=== PATIENT | female | born 1940 | race Caucasian/White ===

== ENCOUNTER 2022-08-11 08:37 | Observation (INO) ==
--- NOTE | 2022-07-16 13:13 | PAT Medication Instructions ---
Medication Instructions Date of Service July 16, 2022 Home Medications Vitamin D3 1 tab PO QAM amlodipine 5 mg tablet 5 mg PO QAM aspirin 81 mg capsule 81 mg PO QAM buspirone 10 mg tablet 10 mg PO BID calcium carbonate 600 mg-vitamin D3 5 mcg (200 unit) tablet 1 tab PO QAM carvedilol 3.125 mg tablet 3.125 mg PO BID cetirizine 10 mg tablet (Zyrtec) 10 mg PO QAM levothyroxine 50 mcg tablet 50 mcg PO QAM lisinopril 20 mg tablet 20 mg PO BID meloxicam 7.5 mg tablet 7.5 mg PO BID oxycodone myristate 9 mg capsule sprinkle extended release 12 hr(DON'T CRUSH) (Xtampza ER) 9 mg PO BID oxycodone-acetaminophen 7.5 mg-325 mg tablet 1 tab PO BID PRN pregabalin 150 mg capsule 150 mg PO BID ASK your surgeon for instructions meloxicam 7.5 mg tablet 7.5 mg PO BID DO NOT take the morning of surgery Vitamin D3 1 tab PO QAM calcium carbonate 600 mg-vitamin D3 5 mcg (200 unit) tablet 1 tab PO QAM cetirizine 10 mg tablet (Zyrtec) 10 mg PO QAM lisinopril 20 mg tablet 20 mg PO BID oxycodone myristate 9 mg capsule sprinkle extended release 12 hr(DON'T CRUSH) (Xtampza ER) 9 mg PO BID Take morning of surgery With a small sip of water, OTHERWISE NOTHING TO EAT OR DRINK AFTER MIDNIGHT: amlodipine 5 mg tablet 5 mg PO QAM aspirin 81 mg capsule 81 mg PO QAM (unless directed otherwise by surgeon) buspirone 10 mg tablet 10 mg PO BID carvedilol 3.125 mg tablet 3.125 mg PO BID levothyroxine 50 mcg tablet 50 mcg PO QAM oxycodone-acetaminophen 7.5 mg-325 mg tablet 1 tab PO BID PRN(if needed) pregabalin 150 mg capsule 150 mg PO BID Take evening before surgery buspirone 10 mg tablet 10 mg PO BID carvedilol 3.125 mg tablet 3.125 mg PO BID lisinopril 20 mg tablet 20 mg PO BID oxycodone myristate 9 mg capsule sprinkle extended release 12 hr(DON'T CRUSH) (Xtampza ER) 9 mg PO BID oxycodone-acetaminophen 7.5 mg-325 mg tablet 1 tab PO BID PRN(if needed) pregabalin 150 mg capsule 150 mg PO BID Other Notes If you have any questions please call us at [phone] or [phone] or [phone] or [phone]
--- NOTE | 2022-07-21 11:21 | Anesthesiology Consultation ---
Date of Service July 21, 2022 Assessment & Plan (1) Encounter for pre-operative examination: - will attempt to obtain most recent cardiology note. - thiopental allergy. - non-healing wound/sore: case discussed in detail with Dr. Morse who advised PCP clearance prior to surgery. Neutropenia also noted. Surgeon's office made aware, patient made aware would need PCP clearance at appt given non-healing w ound/sore. - COVID screening: Per brine tank operator on 07/16/2022: Travel screen negative, no known COVID-19 positive contacts or current COVID-19 related symptoms in past 2 weeks. To surgeon's discretion if preop COVID testing is needed. Chart Review Chart Review: Pending: Refer to Additional Notes / Consult section and Patient seen in Pre Admission Testing Teaching & Discussion Pre-Anesthesia Teaching/Discussion Notes: Instructed NPO after midnight before surgery, except medications with 15 cc of water. Medication instructions provided according to the PAT guidelines. History Surgery Operation Date: 08/11/22 07:30 Proposed Procedures p Left Reversed Total Shoulder Arthroplasty - Grant Lima MD Height/Weight Height: 5 ft 7 in Weight: 71.8 kg Allergies Allergy/AdvReac Type Severity Reaction Status Date / Time morphine AdvReac Gastrointestinal Verified 07/16/22 10:51 Upset [id number] Reductase AdvReac Muscle Pain Verified 07/16/22 10:51 Inhibitor thiopental [From Pentothal] AdvReac "I didn't Verified 07/16/22 11:19 wake up for 3 days" Medications Home Medications Medication Instructions Recorded Confirmed Last Taken Vitamin D3 1 tab PO QAM 07/16/22 07/16/22 Unknown amlodipine 5 mg tablet 5 mg PO QAM 07/16/22 07/16/22 Unknown aspirin 81 mg capsule 81 mg PO QAM 07/16/22 07/16/22 Unknown buspirone 10 mg tablet 10 mg PO BID 07/16/22 07/16/22 Unknown calcium carbonate 600 mg-vitamin 1 tab PO QAM 07/16/22 07/16/22 Unknown D3 5 mcg (200 unit) tablet carvedilol 3.125 mg tablet 3.125 mg PO BID 07/16/22 07/16/22 Unknown cetirizine 10 mg tablet (Zyrtec) 10 mg PO QAM 07/16/22 07/16/22 Unknown levothyroxine 50 mcg tablet 50 mcg PO QAM 07/16/22 07/16/22 Unknown lisinopril 20 mg tablet 20 mg PO BID 07/16/22 07/16/22 Unknown meloxicam 7.5 mg tablet 7.5 mg PO BID 07/16/22 07/16/22 Unknown oxycodone myristate 9 mg capsule 9 mg PO BID 07/16/22 07/16/22 Unknown sprinkle extended release 12 hr(DON'T CRUSH) (Xtampza ER) oxycodone-acetaminophen 7.5 mg-325 1 tab PO BID PRN Pain 07/16/22 07/16/22 Unknown mg tablet pregabalin 150 mg capsule 150 mg PO BID 07/16/22 07/16/22 Unknown diclofenac sodium 50 mg 50 mg PO DAILY 07/21/22 07/21/22 Unknown tablet,delayed release hyoscyamine sulfate 0.125 mg 0.125 mg PO BID PRN Abdominal Pain 07/21/22 07/21/22 Unknown tablet (Levsin) melatonin 10 mg tablet 10 mg PO HS PRN Insomnia 07/21/22 07/21/22 Unknown phenolphthalein-docusate sodium 65 tab PO DAILY 07/21/22 Unknown mg-100 mg tablet Additional Notes: Pt was instructed do NOT take levsin or laxatives/stool softeners day of surgery. She was advised to ask surgeon's office for diclofenac instructions and can continue prn melatonin. These instructions were also written on provided medication instructions. Patient verbalized full understanding and agreement, denied questions, concerns or additional medications. Past Medical History Medical History CAD (coronary artery disease) s/p 1 stent, follows with Dr. Lunsford Chronic back pain Fibromyalgia History of anesthesia reaction see allergy list History of migraine History of thrombocytopenia HLD (hyperlipidemia) HTN (hypertension) controlled, stable per pt Hyponatremia hx, pt states was d/t excessive water intake, now stable Hypothyroidism IBS (irritable bowel syndrome) Non-healing wound posterior vaginal area per pt, follows with PCP Osteoporosis PONV (postoperative nausea and vomiting) denies needing scop patch Slow to wake up after anesthesia denies needing re-intubation TMJ (temporomandibular joint disorder) clicking, denies locking Urinary incontinence Patient denies h/o stroke, seizures, heart attack, heart failure, DM, blood clots or blood transfusions. Exercise / Class Metabolic Activity II 4-5 Yardwork/Stairs/Walk up hill (denies chest discomfort or shortness of breath with 1 FOS) Past Family History Family History Other No family history of adverse response to anesthesia Past Surgical History Surgical History H/O heart artery stent x 1 stent History of bladder surgery x 3 History of cardiac catheterization > 10 years ago. 1 stent. History of cholecystectomy History of colonoscopy History of esophagogastroduodenoscopy (EGD) History of hysterectomy History of tonsillectomy Status post trachelectomy Past Anesthesia History No Family Hx of Anesthesia Complications and Other (slow to wake, denies needing re-intubation) History of PONV No Hx of Motion Sickness and History of PONV (denies needing scop patch) Social History Smoking Status: Never smoker Do You Dip or Chew Tobacco: No Hx Alcohol Use: No Hx Substance Use: No substance use type: does not use Review of Systems Snoring, denies witnessed apneas. Patient denies chest pain, shortness of breath, dyspnea on exertion, reflux, fever, chills, cough, wheezing, or palpitations. Physical Exam Vital Signs Vitals BP 157/88 P 72 TEMP 98.7 SP02 94% on RA RESP 17 Physical Full cervical extension range of motion without pain TMD 3.5 finger breadths Mallampati Score 2 Dentition: full upper denture; denies chipped or loose teeth, implants or bridges Lungs: normal respiratory effort. Clear throughout to auscultation, no adventitious breath sounds Cardiac: regular rate and rhythm, no murmurs noted Carotid arteries: negative bruit bilat Lab Results Anesthesia Preop Results Results Anesthesia Widget: WBC 3.44 K/ul (4.8-10.8) L 07/21/22 Hgb 15.3 g/dl (12.0-16.0) 07/21/22 Hct 45.1 % (37.0-47.0) 07/21/22 Plt 177 K/uL (130-400) 07/21/22 Na 140 mmol/L (136-145) 07/21/22 K 4.1 mmol/L (3.5-5.1) 07/21/22 Cl 104 mmol/L (98-107) 07/21/22 CO2 28 mmol/L (21-32) 07/21/22 BUN 20 mg/dl (6-23) 07/21/22 Creat 1.01 mg/dl (0.6-1.2) 07/21/22 Glucose Level 104 mg/dl (70-99(Fasting)) H 07/21/22 PT 11.0 Seconds (9.0-12.0) 07/21/22 PTT 27.2 Seconds (21.0-31.0) 07/21/22 INR 1.0 (0.9-1.1) 07/21/22 Blood Type O Positive 07/21/22 Antibody Screen NEGATIVE 07/21/22 Testing Laboratory Results 06/17/2022 UA: yellow, clear, negative Electrocardiogram Date: 07/21/22 NSR, rate [address] abnormality Chest X-Ray Date: 07/21/22 No lines and tubes are seen. Calcified aortic knob is seen. The lungs are clear. No evidence of pleural effusion or pneumothorax. IMPRESSION: No acute chest disease. COVID-19 Risk Screen Screening Information COVID-19 Screen Date: 07/21/22 Exposure 21 Days Family/Household +COVID Last 21 Days: No Exposure 10 Days Any COVID Exposure Last 10 Days: No Symptoms Last 10 Days Experienced COVID Sx Last 10 Days: No + COVID 0-90 Days COVID + in Last 0-90 Days: No
[~2022-08-11 08:37] MED LIST: ACETAMINOPHEN 500 MG TAB PO SCH; BUPIVACAINE 0.5 % 5 MG/1 ML PF 10ML VIAL ONE; CeleBREX 200 MG CAP PO SCH; LR 15ML/HR IV SCH; ceFAZolin 2000MG 2,000 MG/15 ML SYR IV SCH
[2022-08-11] MEDS ORDERED: MIDAZOLAM HCL 1 MG/ML 2ML VIAL ONE (11:10)
--- NOTE | 2022-08-11 11:21 | History & Physical Report ---
Date of Service August 11, 2022 Assessment & Plan (1) Rotator cuff tear arthropathy of left shoulder: Plan: I have recommended a left reverse total shoulder replacement. I explained the risk benefits and alternatives to her and she has consented to proceed. Plan is admission with discharge to a subacute nursing facility. History of Present Illness Chief Complaint: Left shoulder pain Primary Care Provider: KATELYNN PCP Rica is an 82-year-old woman with left shoulder pain and left shoulder rotator cuff tear arthropathy. After the failure of conservative treatment I recommended proceeding with a left reverse total shoulder replacement. Allergies Allergy/AdvReac Type Severity Reaction Status Date / Time morphine AdvReac Gastrointestinal Verified 08/11/22 08:59 Upset [id number] Reductase AdvReac Muscle Pain Verified 08/11/22 08:59 Inhibitor thiopental [From Pentothal] AdvReac "I didn't Verified 08/11/22 08:59 wake up for 3 days" Home Medications Medication Instructions Recorded Confirmed Type Vitamin D3 1 tab PO QAM 07/16/22 08/11/22 History amlodipine 5 mg tablet 5 mg PO QAM 07/16/22 08/11/22 History aspirin 81 mg capsule 81 mg PO QAM 07/16/22 08/11/22 History buspirone 10 mg tablet 10 mg PO BID 07/16/22 08/11/22 History calcium carbonate 600 mg-vitamin 1 tab PO QAM 07/16/22 08/11/22 History D3 5 mcg (200 unit) tablet carvedilol 3.125 mg tablet 3.125 mg PO BID 07/16/22 08/11/22 History cetirizine 10 mg tablet (Zyrtec) 10 mg PO QAM 07/16/22 08/11/22 History levothyroxine 50 mcg tablet 50 mcg PO QAM 07/16/22 08/11/22 History lisinopril 20 mg tablet 20 mg PO BID 07/16/22 08/11/22 History meloxicam 7.5 mg tablet 7.5 mg PO BID 07/16/22 08/11/22 History oxycodone myristate 9 mg capsule 9 mg PO BID 07/16/22 08/11/22 History sprinkle extended release 12 hr(DON'T CRUSH) (Xtampza ER) oxycodone-acetaminophen 7.5 mg-325 1 tab PO BID PRN Pain 07/16/22 08/11/22 History mg tablet pregabalin 150 mg capsule 150 mg PO BID 07/16/22 08/11/22 History diclofenac sodium 50 mg 50 mg PO DAILY 07/21/22 08/11/22 History tablet,delayed release hyoscyamine sulfate 0.125 mg 0.125 mg PO BID PRN Abdominal Pain 07/21/22 08/11/22 History tablet (Levsin) melatonin 10 mg tablet 10 mg PO HS PRN Insomnia 07/21/22 08/11/22 History phenolphthalein-docusate sodium 65 tab PO DAILY 07/21/22 History mg-100 mg tablet Past Med/Surg History Medical History CAD (coronary artery disease) s/p 1 stent, follows with Dr. Lunsford Chronic back pain Fibromyalgia History of anesthesia reaction see allergy list History of migraine History of thrombocytopenia HLD (hyperlipidemia) HTN (hypertension) controlled, stable per pt Hyponatremia hx, pt states was d/t excessive water intake, now stable Hypothyroidism IBS (irritable bowel syndrome) Non-healing wound posterior vaginal area per pt, follows with PCP Osteoporosis PONV (postoperative nausea and vomiting) denies needing scop patch Slow to wake up after anesthesia denies needing re-intubation TMJ (temporomandibular joint disorder) clicking, denies locking Urinary incontinence Surgical History H/O heart artery stent x 1 stent History of bladder surgery x 3 History of cardiac catheterization > 10 years ago. 1 stent. History of cholecystectomy History of colonoscopy History of esophagogastroduodenoscopy (EGD) History of hysterectomy History of tonsillectomy Status post trachelectomy Family History Other No family history of adverse response to anesthesia Social History Smoking Status: Never smoker Second Hand Exposure: No; Do You Dip or Chew Tobacco: No; Hx Alcohol Use: No Hx Substance Use: No Preferred Language: Korean Communication Ability: Effective Retail Consultant Required: No Beliefs That Will Affect Care: None Current Living Situation: Spouse Feels Safe at Home: Yes Safety Concerns: Feels Safe At This Time Assistive Devices: Denture - Upper and Glasses Physical Exam Constitutional: Well-developed, well-nourished, no acute distress Eyes: PERRL, conjunctivae normal, anicteric sclerae ENMT: external ear and nose normal, oropharynx normal Neck: Supple with no masses Respiratory: Clear to auscultation Cardiovascular: Regular rate and rhythm Musculoskeletal: Left shoulder decreased range of motion, crepitus, diffuse pain Results & Data Results & Data Vital Signs (Past 12 Hours) Vital Signs Temp Pulse Resp BP Pulse Ox O2 Del Method 08/11/22 09:04 36.7 C 74 21 147/88 H 95 Room Air
[2022-08-11] MEDS ORDERED: ePHEDrine sulfate 50 MG/ML AMP IV PRN (11:22)
[2022-08-11] MEDS ORDERED: ATROPINE SULFATE 0.1 MG/ML 10ML SYR IV PRN (11:22)
[2022-08-11] MEDS ORDERED: ONDANSETRON INJ 2 MG/ML 2 ML VIAL IV PRN ×2 (11:22→13:43)
[2022-08-11] MEDS ORDERED: fentaNYL citrate PF 100 MCG/2 ML VIAL IV PRN (11:22)
[2022-08-11] MEDS ORDERED: LR 15ML/HR IV SCH (11:30)
[2022-08-11] MEDS ORDERED: fentaNYL citrate PF 100 MCG/2 ML VIAL ONE (11:45)
[2022-08-11] MEDS ORDERED: PROPOFOL IV EMULSION 10 MG/ML 20 ML VIAL IV ONE (12:44)
[2022-08-11] MEDS ORDERED: LIDOCAINE 2% MPF LOCAL 5 ML VIAL ONE (12:44)
[2022-08-11] MEDS ORDERED: PHENYLEPHRINE 100MCG/ML 5ML SYR ONE (12:44)
[2022-08-11] MEDS ORDERED: ePHEDrine sulfate 50 MG/ML SYR ONE (12:44)
[2022-08-11] MEDS ORDERED: ONDANSETRON INJ 2 MG/ML 2 ML VIAL ONE (12:59)
[2022-08-11] MEDS ORDERED: DEXAMETHASONE SOD INJ 4 MG/ML VIAL ONE (12:59)
[2022-08-11] MEDS ORDERED: GLYCOPYRROLATE 0.2 MG/ML VIAL ONE (13:19)
--- NOTE | 2022-08-11 13:38 | Post Operative Brief Note ---
Immediate Post Op Note v1 Date of Surgery August 11, 2022 Pre & Post Diagnosis Operation Date: 08/11/22 11:20 Pre-Op Diagnosis: Left Shoulder Osteoarthritis Post-Op Diagnosis: Left Shoulder Osteoarthritis I identified the patient and participated in the time-out.: Yes Procedure Operation Date: 08/11/22 11:20 Actual Procedures p Left Reversed Total Shoulder Arthroplasty(Left) - Grant Lima MD Surgeon Grant Lima MD Artisan Plasterer Gilda Mccullough PA-C Estimated Blood Loss 30 Findings Consistent with Post-Op Diagnosis Left shoulder rotator cuff tear arthropathy Anesthesia Type General Regional Complications No complications
[2022-08-11] MEDS ORDERED: MELATONIN 3 MG TAB PO PRN (13:40)
[2022-08-11] MEDS ORDERED: HYOSCYAMINE SULFATE 0.125 MG TAB PO PRN (13:40)
[2022-08-11] MEDS ORDERED: oxyCODONE/APAP 7.5/325MG TAB PO PRN (13:40)
--- NOTE | 2022-08-11 13:40 | Operative Report ---
Post Operative Report Pre & Post Diagnosis Operation Date: 08/11/22 11:20 Pre-Op Diagnosis: Left Shoulder Osteoarthritis Post-Op Diagnosis: Left Shoulder Osteoarthritis I identified the patient and participated in the time-out.: Yes Procedure Operation Date: 08/11/22 11:20 Actual Procedures p Left Reversed Total Shoulder Arthroplasty(Left) - Grant Lima MD Surgeon Grant Lima MD Honey Blender Gilda Mccullough PA-C Estimated Blood Loss 30 Findings Consistent with Post-Op Diagnosis Osteoarthritis with glenohumeral cartilage loss, osteophyte formation, cephalization of the humeral head and deficient rotator cuff Specimens Proximal humerus bone and cartilage Drains No drains Complications No complications Indications Rica is a 82-year-old woman with left shoulder rotator cuff tear arthropathy. After the failure of conservative treatment I recommended proceeding with a left reverse total shoulder replacement. I explained the risk benefits and alternatives to her and she consented to proceed. Description of Procedure Implants: Arthrex reverse total shoulder replacement. Humeral stem 10 short with 36 x +2 mm offset cup. 36 mm x +6 mm polyethylene. 24 mm x +4 mm baseplate. 130 mm central screw to peripheral locking screws. 36 mm x +4 mm glenosphere. Procedure: The patient was taken to the operating room. After verifying their identity and the surgical site they were placed in the beachchair position. All extremities were well-padded. The operative shoulder was sterilely prepped and draped in the usual fashion. A 4 inch incision was made anteriorly just lateral to the coracoid process and carried towards the axillary folds. The deltopectoral interval was identified and the cephalic vein and deltoid muscle were retracted laterally. A deep self-retaining retractor was placed. The capsule was exposed. The subscapularis was elevated off of the proximal humerus and tagged for later repair. The humeral head was exposed and recut at the anatomic neck. The humerus was reamed sequentially until appropriate cortical contact was identified. The trial component was placed in 30 degrees of retroversion. Retractors were placed to expose the glenoid. The remaining labral tissue including the biceps anchor was removed. The central pin was placed and the glenoid was reamed. The baseplate was impacted into place with 1 central and 2 peripheral locking screws. The glenosphere was impacted into place into the correct orientation and securely tested with a large clamp. Polyethylene components were trialed until an appropriately sized trial was identified that had full range of motion, good stability, good deltoid tension, and no signs of impingement. The trial humerus components were removed and the final components assembled and impacted into place. 30 degrees of retroversion was utilized. After reduction once again there was good range of motion, good stability, appropriate deltoid tension, and no signs of impingement. The joint was thoroughly irrigated. The subscapularis was repaired to the proximal humerus. The rotator interval was closed distally if there was any supraspinatus tendon left. The remaining incision was closed with 0 Vicryl 2-0 Vicryl and kulwinder. A sterile Silverlon dressing was applied. The patient was placed in a shoulder immobilizer. The patient tolerated the procedure well and there were no intraoperative complications. Gilda Mccullough PA-C assisted in all aspects of the procedure including patient positioning, prepping and draping, manipulation of surgical instruments and retractors, wound closure, dressing placement, and compression wrap placement. I attest to the content of the Intraoperative Record and any orders documented therein. Any exceptions are noted below.
[2022-08-11] MEDS ORDERED: bisacodyL 10 MG SUPP PR PRN (13:43)
[2022-08-11] MEDS ORDERED: NALOXONE HCL 0.4 MG/1 ML VIAL/CARP IV PRN (13:43)
[2022-08-11] MEDS ORDERED: HYDROmorphone INJ 1 MG/ML SYRINGE IV PRN (13:43)
[2022-08-11] MEDS ORDERED: MAGNESIUM HYDROXIDE SUSP 30 ML UDC PO PRN (13:43)
--- NOTE | 2022-08-11 14:18 | Anesthesiology Progress Note ---
Date of Service August 11, 2022 Anesthesia Post Procedure Vital Signs Vital Signs: Temp Pulse Pulse Resp BP Pulse Ox O2 Del Method 08/11/22 14:10 85 24 150/76 H 97 Room Air 08/11/22 14:00 87 20 144/74 H 100 Oxymask 08/11/22 13:51 96.8 F L 95 H 15 148/83 H 96 Oxymask 08/11/22 09:04 98.1 F 74 21 147/88 H 95 Room Air O2 Flow Rate 08/11/22 14:10 08/11/22 14:00 10 08/11/22 13:51 10 08/11/22 09:04 Pain Intensity Left Shoulder: Pain Intensity: 4 Transfer of Care Handoff Completed per policy Notes Mental Status: alert / awake / arousable and participated in evaluation Patient Amnestic to Procedure: Yes Nausea / Vomiting: adequately controlled Pain: adequately controlled Airway Patency, RR, SpO2: stable & adequate BP & HR: stable & adequate Hydration State: stable & adequate Anesthetic Complications: no major complications apparent and Pt Satisfied with anesthetic care
[2022-08-11] MEDS: SODIUM CHLORIDE 0.9% 1000ML 1,000 ML IV SCH (14:59)
--- NOTE | 2022-08-11 15:36 | Hospitalist Consultation ---
Date of Consultation August 11, 2022 Assessment & Plan (1) Rotator cuff tear arthropathy of left shoulder: Left total shoulder arthroplasty s/p Left Reversed Total Shoulder Arthroplasty 08/12/2019 Doing well postoperatively, edge stainer machine strength and sensation is intact. Some intermittent qualitative numbness. Mild swelling at surgical site Continue current pain control, patient does not have her Xtampza ER available this has been converted to Oxy Contin 10 mg twice daily Continue aspirin twice daily 81 mg for DVT prophylaxis PPI stress prophylaxis added while on aspirin twice daily, patient is also with a history of NSAID use Coronary artery disease with history of PCI and single stent placement 2003 Continue carvedilol as noted Hold meloxicam Continue aspirin, temporarily increased to twice daily from daily for DVT prophylaxis. Preop EKG: Normal sinus rhythm, nonspecific ST changes, no ST elevation/depressions, QTc 432 Follows with [facility]. She has limited mobility due to her fibromyalgia and joint pain; but had not had anginal symptoms leading up to evaluation No chest pain, chest pressure, dyspnea, or anginal symptoms postoperatively Hypertension Continue carvedilol twice daily, do not hold unless hypotensive Continue amlodipine May continue lisinopril 20 mg twice daily Hypothyroidism Continue Synthroid 50 mcg daily History hyponatremia Due to excessive water intake, no problems since dietary change. Sodium is normal preop. No acute management for this required. Fibromyalgia Continue home Percocet dosing, pregabalin 150 3 times daily. Xtampsa converted to OxyContin, may resume Xtampsa on d/c Osteoporosis Continue calcium plus vitamin D DVT prophylaxis: Per primary team, currently on aspirin 81 mg twice daily which is adequate CODE STATUS: Full code Diet: Heart healthy (2) CAD (coronary artery disease): (3) HLD (hyperlipidemia): (4) Hyponatremia: (5) Hypothyroidism: (6) HTN (hypertension): History of Present Illness Attending Physician: Grant Lima MD History of Present Illness Rica is an 82-year-old female with a past medical history of SIADH, anxiety, hyperlipidemia, Sjogren's, hypothyroidism, GERD, fibromyalgia, hypertension who presented for scheduled left reverse total shoulder arthroplasty 08/11/22. We are consulted for medical management of comorbidities. Surgical intervention was uncomplicated with estimated 30 cc of blood loss. Rica is seen at the bedside, she reports she feels well postoperatively. She reports she has used NSAIDs in the past, denies history of ulcers/bleeding or kidney dysfunction. She is not having any chest pain, chest pressure, lightheadedness, dizziness or grogginess. She has a history of PCI with a single stent for which she is on aspirin and some cardiac medications, denies recent chest pain/angina but is somewhat limited due to her chronic joint pain. She has not had recent shortness of breath when laying flat or change in exertional dyspnea, reports that at baseline she has some mild shortness of breath with ambulation but this has not changed or increased in the last several months. she reports she has had some thumb and first digit numbness/tingling which has come back after her sensation was normal postoperatively. She reports she has had some paresthesias intermittently, thinks this feels a little bit different from her prior paresthesias. She reports her shoulder pain overall is about a 7/10. She is a little chilly and would like another blanket, otherwise no questions or concerns at bedside. No nausea/vomiting/abdominal pain/stomach upset postoperatively Medical History: Reviewed Medications: Reviewed Surgical History: Reviewed Family history: Reviewed Allergies: Reviewed Social History: Reviewed Code Status: Full code Allergies Allergy/AdvReac Type Severity Reaction Status Date / Time acetaminophen AdvReac Intermediate Increased Verified 08/11/22 11:28 Liver Enzymes per [place] morphine AdvReac Gastrointestinal Verified 08/11/22 08:59 Upset Slytcbl-UEY-CbN Reductase AdvReac Muscle Pain Verified 08/11/22 08:59 Inhibitor thiopental [From Pentothal] AdvReac "I didn't Verified 08/11/22 08:59 wake up for 3 days" Home Medications Medication Instructions Recorded Confirmed Type Vitamin D3 1 tab PO QAM 07/16/22 08/11/22 History amlodipine 5 mg tablet 5 mg PO QAM 07/16/22 08/11/22 History aspirin 81 mg capsule 81 mg PO QAM 07/16/22 08/11/22 History buspirone 10 mg tablet 10 mg PO BID 07/16/22 08/11/22 History calcium carbonate 600 mg-vitamin 1 tab PO QAM 07/16/22 08/11/22 History D3 5 mcg (200 unit) tablet carvedilol 3.125 mg tablet 3.125 mg PO BID 07/16/22 08/11/22 History cetirizine 10 mg tablet (Zyrtec) 10 mg PO QAM 07/16/22 08/11/22 History levothyroxine 50 mcg tablet 50 mcg PO QAM 07/16/22 08/11/22 History lisinopril 20 mg tablet 20 mg PO BID 07/16/22 08/11/22 History meloxicam 7.5 mg tablet 7.5 mg PO BID 07/16/22 08/11/22 History oxycodone myristate 9 mg capsule 9 mg PO BID 07/16/22 08/11/22 History sprinkle extended release 12 hr(DON'T CRUSH) (Xtampza ER) oxycodone-acetaminophen 7.5 mg-325 1 tab PO BID PRN Pain 07/16/22 08/11/22 History mg tablet pregabalin 150 mg capsule 150 mg PO BID 07/16/22 08/11/22 History diclofenac sodium 50 mg 50 mg PO DAILY 07/21/22 08/11/22 History tablet,delayed release hyoscyamine sulfate 0.125 mg 0.125 mg PO BID PRN Abdominal Pain 07/21/22 08/11/22 History tablet (Levsin) melatonin 10 mg tablet 10 mg PO HS PRN Insomnia 07/21/22 08/11/22 History phenolphthalein-docusate sodium 65 tab PO DAILY 07/21/22 History mg-100 mg tablet Patient History Medical History (Updated 08/11/22 @ 16:36 by Marv Torres MD) CAD (coronary artery disease) s/p 1 stent, follows with Dr. Lunsford Chronic back pain Fibromyalgia History of anesthesia reaction see allergy list History of migraine History of thrombocytopenia HLD (hyperlipidemia) HTN (hypertension) controlled, stable per pt Hyponatremia hx, pt states was d/t excessive water intake, now stable Hypothyroidism IBS (irritable bowel syndrome) Non-healing wound posterior vaginal area per pt, follows with PCP Osteoporosis PONV (postoperative nausea and vomiting) denies needing scop patch Slow to wake up after anesthesia denies needing re-intubation TMJ (temporomandibular joint disorder) clicking, denies locking Urinary incontinence Surgical History H/O heart artery stent x 1 stent History of bladder surgery x 3 History of cardiac catheterization > 10 years ago. 1 stent. History of cholecystectomy History of colonoscopy History of esophagogastroduodenoscopy (EGD) History of hysterectomy History of tonsillectomy Status post trachelectomy Family History Other No family history of adverse response to anesthesia Social History Smoking Status: Never smoker Second Hand Exposure: No; Do You Dip or Chew Tobacco: No; Hx Alcohol Use: No Hx Substance Use: No Preferred Language: Luxembourgish Communication Ability: Effective Chute Feeder Required: No Beliefs That Will Affect Care: None Current Living Situation: Spouse Feels Safe at Home: Yes Safety Concerns: Feels Safe At This Time Assistive Devices: Denture - Upper and Glasses Review of Systems Review of Systems: All systems reviewed & are unremarkable except as noted in HPI & below Physical Exam Physical Exam: General: A&Ox3. NAD. Cooperative. HEENT: Atraumatic, normocephalic. Vision/hearing grossly intact. Pupils equal and reactive to light Pulm: CTAB A&P. -wheezes, -rales, -rhonchi. Symmetrical chest rise. No increased work of breathing. No respiratory distress. Cardiac: RRR, -mrg. Radial pulses intact and symmetrical. Abdominal: Nontender, nondistended, soft. BS present. Extremities: Nuclear Equipment Design Engineer strength 5/5, finger flexion/extension 5/5 bilaterally. Radial pulse intact to palpation bilaterally. Sensation of soft touch intact in all 5 digits bilaterally, some qualitative numbness/tingling in first and second digit volar surfaces. Surgical site as below. Ankle dorsiflexion/plantarfle xion 5/5 bilaterally Results & Data Results & Data Vital Signs (Past 12 Hours) Vital Signs Temp Pulse Pulse Resp BP Pulse Ox O2 Del Method 08/11/22 15:10 36.4 C L 81 16 131/70 94 Room Air 08/11/22 14:53 Room Air 08/11/22 14:42 36.5 C 86 16 126/91 95 Room Air 08/11/22 14:20 36.4 C L 87 19 150/76 H 96 Room Air 08/11/22 14:10 85 24 150/76 H 97 Room Air 08/11/22 14:00 87 20 144/74 H 100 Oxymask 08/11/22 13:51 36.0 C L 95 H 15 148/83 H 96 Oxymask 08/11/22 09:04 36.7 C 74 21 147/88 H 95 Room Air O2 Flow Rate 08/11/22 15:10 08/11/22 14:53 08/11/22 14:42 08/11/22 14:20 08/11/22 14:10 08/11/22 14:00 10 08/11/22 13:51 10 08/11/22 09:04 PG Care Time/CCT Total # of Minutes Spent Total Time Spent with Patient: Total time spent is greater than 50% in coordination of care (as documented) at patient's floor/unit and/or counseling patient: Coding Level of Care Code 78477 IN/OBS CONSULT LVL 4,60M Diagnoses Rotator cuff tear arthropathy of left shoulder M75.102; M12.812 CAD (coronary artery disease) I25.10 HLD (hyperlipidemia) E78.5 Hyponatremia E87.1 Hypothyroidism E03.9 HTN (hypertension) I10
[2022-08-11] MEDS: PANTOprazole 40 MG TAB PO SCH (17:25)
[2022-08-11] MEDS ORDERED: lisinopril 20 MG TAB PO SCH (21:00)
[2022-08-11] MEDS ORDERED: [UNRECOGNIZED DRUG - REMARK] PO SCH (21:00)
[2022-08-11] MEDS: ASPIRIN 81 MG ECTAB PO SCH (21:49)
[2022-08-11] MEDS: busPIRone 5 MG TAB PO SCH (21:50)
[2022-08-11] MEDS: carvediloL 3.125 MG TAB PO SCH (21:50)
[2022-08-11] MEDS: CeleBREX 200 MG CAP PO SCH (21:51)
[2022-08-11] MEDS: DOCUSATE SODIUM 100 MG CAP PO SCH (21:51)
[2022-08-11] MEDS: SENNA 8.6 MG TAB PO SCH (21:52)
[2022-08-11] MEDS: oxyCODONE HCL 10 MG TABCR (OxyCONTIN) PO SCH (21:57)
[2022-08-11] MEDS: PREGABALIN 150 MG CAP PO SCH (21:57)
[2022-08-11] MEDS: ceFAZolin 2000MG 2,000 MG/15 ML SYR IV SCH (22:22)
[2022-08-12] MEDS: SODIUM CHLORIDE 0.9% 1000ML 1,000 ML IV SCH (02:17)
[2022-08-12] MEDS: ceFAZolin 2000MG 2,000 MG/15 ML SYR IV SCH (03:27)
[2022-08-12] MEDS ORDERED: ceFAZolin 2000MG 2,000 MG/15 ML SYR IV SCH (06:00)
[2022-08-12 06:40] LABS: Basophils # (auto) 0.01 K/uL (0-0.2); Basophils % (auto) 0.1 %; Hemoglobin 10.6 g/dl (12.0-16.0); Immature Granulocytes # (auto) 0.03 K/uL (0.01-0.20); Immature Granulocytes % (auto) 0.4 %; Lymphocytes # (auto) 0.73 K/uL (1.2-3.4); Lymphocytes % (auto) 9.8 %; Mean Corpuscular Hemoglobin 30.8 pg (25.0-34.0); Mean Corpuscular Hgb Conc 35.3 g/dL (32.0-36.0); Mean Corpuscular Volume 87.2 fL (80.0-100.0); Mean Platelet Volume 11.6 fL (9.4-12.4); Monocytes # (auto) 0.69 K/uL (0.11-0.59); Monocytes % (auto) 9.2 %; Neutrophils # (auto) 6.01 K/uL (1.40-6.50); Neutrophils % (auto) 80.5 %; Platelet Count 179 K/uL (130-400); RDW Coefficient of Variation 13.1 % (11.5-14.5); RDW Standard Deviation 41.7 fL (36.4-46.3); Red Blood Count 3.44 M/uL (4.20-5.40); White Blood Count 7.47 K/ul (4.8-10.8)
[2022-08-12 07:14] LABS: BUN Creatinine Ratio 20.8 (10-20); Calcium 7.7 mg/dl (8.6-10.3); Creatinine Clr Calc Pharmacy 43.2 ml/min; Est GFR (African American) 63.4 ml/min; Est GFR (Non-African American) 54.7 ml/min; Potassium 3.9 mmol/L (3.5-5.1)
[2022-08-12] MEDS ORDERED: dexAMETHasone 10 MG in SYRINGE 0 ML IV SCH (08:00)
[2022-08-12] MEDS ORDERED: amLODIPine BESYLATE 5 MG TAB PO SCH (09:00)
[2022-08-12] MEDS: DOCUSATE SODIUM 100 MG CAP PO SCH ×2 (09:01→20:55)
[2022-08-12] MEDS: CETIRIZINE HCL 10 MG TABLET PO SCH (09:02)
[2022-08-12] MEDS: CALCIUM 600MG + VIT D 400 IU TAB PO SCH (09:02)
[2022-08-12] MEDS: CeleBREX 200 MG CAP PO SCH ×2 (09:02→20:54)
[2022-08-12] MEDS: LEVOTHYROXINE SODIUM 50 MCG TABLET PO SCH (09:02)
[2022-08-12] MEDS: busPIRone 5 MG TAB PO SCH ×2 (09:02→20:55)
[2022-08-12] MEDS: carvediloL 3.125 MG TAB PO SCH ×2 (09:02→20:53)
[2022-08-12] MEDS: MULTIVITAMIN TAB PO SCH (09:03)
[2022-08-12] MEDS: CHOLECALCIFEROL 1,000 UNITS 25 MCG TAB PO SCH (09:03)
[2022-08-12] MEDS: PANTOprazole 40 MG TAB PO SCH (09:03)
[2022-08-12] MEDS: ASPIRIN 81 MG ECTAB PO SCH ×2 (09:03→20:54)
[2022-08-12] MEDS: PREGABALIN 150 MG CAP PO SCH ×2 (09:12→20:52)
[2022-08-12] MEDS: oxyCODONE HCL 10 MG TABCR (OxyCONTIN) PO SCH ×2 (09:12→20:48)
[2022-08-12] MEDS ORDERED: LACTATED RINGER'S 500 ML IV ONE ×2 (09:37→16:52)
[2022-08-12] MEDS ORDERED: STAT IV STA (09:39)
--- NOTE | 2022-08-12 09:47 | Orthopedic Progress Note ---
Date of Service August 12, 2022 Assessment & Plan (1) Rotator cuff tear arthropathy of left shoulder: Plan: POD #1 s/p Left Reversed Total Shoulder Arthroplasty pt/ot asa 81mg po bid will likely need SNF, CM consult has been placed pain currently well controlled medical team managing her HTN, thyroid and other medical problems. Admission and Anticipated Discharge Date Admission Date: August 11, 2022 Subjective POD #1 s/p Left Reversed Total Shoulder Arthroplasty Review of Systems Constitutional: no fever and no chills Respiratory: no cough and no dyspnea Cardiovascular: no chest pain, no dyspnea and no orthopnea Gastrointestinal: no abdominal pain, no nausea and no vomiting Physical Exam Physical Exam: Vital Signs Temp 36.7 C 08/12/22 09:18 Pulse 77 08/12/22 09:18 Resp 16 08/12/22 09:18 BP 95/60 L 08/12/22 09:18 Pulse Ox 94 08/12/22 09:18 O2 Del Method Room Air 08/12/22 09:18 O2 Flow Rate 10 08/11/22 14:00 Intake & Output 08/11/22 08/12/22 08/12/22 18:59 06:59 18:59 Intake Total 1600 / 3600 2000 / 3600 Output Total 30 / 530 500 / 530 Balance 1570 / 3070 1500 / 3070 Weight 71.1 kg Intake: IV 0 1999 / 1999 Lactated Ringe r's 1,000 ml @ 15 0 / 0 mls/hr IV .Q24 H VALENTIN Rx#: [id number] Sodium Chlorid e 0.9% 1000ML 1, 2000 / 1999 000 ml @ 100 m ls/hr IV .Q10H VALENTIN Rx#:[id number] IV Perioperative 1600 / 1600 Output: Estimated Blood Loss 30 / 30 Urine Amount (Ca theter) 500 / 500 External 500 / 500 Other: Weight Measureme nt Method Standing Scale Musculoskeletal: Left shoulder: silverlon intact, arm resting in sling. rad pulse +2. rad/med/ulnar nerves intact, states has some numbness into her digits. Results & Data Vital Signs (Past 12 Hours) Vital Signs Temp Pulse Resp BP Pulse Ox O2 Del Method 08/12/22 09:18 36.7 C 77 16 95/60 L 94 Room Air 08/12/22 08:40 79/50 L 08/12/22 08:40 105/61 08/12/22 07:10 Room Air 08/12/22 06:31 36.7 C 70 16 101/52 L 96 Room Air 08/12/22 03:03 36.5 C 76 17 91/55 L 96 Room Air 08/11/22 23:11 36.3 C L 81 16 103/60 95 Room Air 08/11/22 21:50 Room Air
[2022-08-12] MEDS ORDERED: CALCIUM GLUCONATE 10% 1,000 MG in DEXTROSE 5% 50 ML IV ONE (10:00)
--- NOTE | 2022-08-12 16:52 | Hospitalist Progress Note ---
Date of Service August 12, 2022 Assessment & Plan (1) Rotator cuff tear arthropathy of left shoulder: Plan: Left total shoulder arthroplasty s/p Left Reversed Total Shoulder Arthroplasty 08/12/2019 -pain controlled, with acute blood loss anemia and orthostasis Continue current pain control, patient does not have her Xtampza ER available this has been converted to Oxy Contin 10 mg twice daily Continue aspirin twice daily 81 mg for DVT prophylaxis PPI stress prophylaxis added while on aspirin twice daily, patient is also with a history of NSAID use -LUE in sling -plan for SNF (2) HTN (hypertension): Plan: BPs with orthostasis with sitting, BP to 60s systolic, 90s lying Continue carvedilol twice daily with hold parameters hold amlodipine and lisinopril until orthostasis improves -gave LR bolus 500mL this AM and will give another bolus of 500mL this evening as remains orthostatic (3) Orthostasis: Plan: as above check orthostatics in the AM replacing volume hold antiherpertensives (4) Acute blood loss anemia: Plan: hgb drop to 10 from 15 preop some bruising around surgical site follow CBC giving IVFs for orthostasis (5) CAD (coronary artery disease): Plan: Coronary artery disease with history of PCI and single stent placement 2003 Continue carvedilol as noted Hold meloxicam Continue aspirin, temporarily increased to twice daily from daily for DVT prophylaxis. Preop EKG: Normal sinus rhythm, nonspecific ST changes, no ST elevation/depressions, QTc 432 Follows with [facility]. She has limited mobility due to her fibromyalgia and joint pain; but had not had anginal symptoms leading up to evaluation No chest pain, chest pressure, dyspnea, or anginal symptoms postoperatively (6) Hyponatremia: Plan: Na+ here is normal Due to excessive water intake, no problems since dietary change. No acute management for this required. (7) Hypothyroidism: Plan: Continue Synthroid 50 mcg daily (8) Fibromyalgia: Plan: Continue home Percocet dosing, pregabalin 150 3 times daily. Xtampsa converted to OxyContin, may resume Xtampsa on d/c Plan DVT proph-SARAHI hose, SCDs, ASA bid Dispo-continued stay for orthostasis, plan for SNF if medically stable tomorrow Admission and Anticipated Discharge Date Admission Date: August 11, 2022 Subjective Had orthostasis today with BPs dropping into the 60s with sitting. Received a bolus and was asymptomatic after that. Denies CP, SOB, nausea. Pain controlled Physical Exam Constitutional: WD/WN, vitals as above Neck: trachea midline, no thyromegaly Respiratory: normal respiratory effort, lungs clear to auscultation Cardiovascular: RRR, no murmur, no edema Chest (Breasts): Chest: normal inspection of chest Gastrointestinal (Abdomen): normal bowel sounds, soft, nontender, no hepatosplenomegaly Musculoskeletal: Extremities: + extremities abnormal to inspection (LUE in sling), no cyanosis and no clubbing Skin: no rashes, warm and dry Neurologic: moves all extremities and awake; no focal motor deficits Psychiatric: A+Ox3, euthymic affect Lymphatic: no lymphedema Results & Data Results & Data Vital Signs (Past 12 Hours) Vital Signs Temp Pulse Resp BP Pulse Ox O2 Del Method 08/12/22 15:16 105/63 08/12/22 15:04 36.7 C 69 16 98/61 L 94 Room Air 08/12/22 12:32 36.7 C 70 16 96/60 L 94 Room Air 08/12/22 10:55 36.7 C 74 16 92/55 L 93 Room Air 08/12/22 09:18 36.7 C 77 16 95/60 L 94 Room Air 08/12/22 08:40 79/50 L 08/12/22 08:40 105/61 08/12/22 07:10 Room Air 08/12/22 06:31 36.7 C 70 16 101/52 L 96 Room Air PG Care Time/CCT Total # of Minutes Spent Total Time Spent with Patient: Total time spent is greater than 50% in coordination of care (as documented) at patient's floor/unit and/or counseling patient: Coding Level of Care Code 23284 SUB INP/OBS CARE 2/35MIN Diagnoses Rotator cuff tear arthropathy of left shoulder M75.102; M12.812 HTN (hypertension) I10 Orthostasis I95.1 Acute blood loss anemia D62 CAD (coronary artery disease) I25.10 Hyponatremia E87.1 Hypothyroidism E03.9 Fibromyalgia M79.7
[2022-08-12] MEDS: SENNA 8.6 MG TAB PO SCH (20:55)
[2022-08-13 06:59] LABS: Hematocrit (blood only) 25.6 % (37.0-47.0); Immature Granulocytes # (auto) 0.04 K/uL (0.01-0.20); Immature Granulocytes % (auto) 0.6 %; Lymphocytes # (auto) 0.78 K/uL (1.2-3.4); Lymphocytes % (auto) 12.1 %; Mean Corpuscular Hemoglobin 30.2 pg (25.0-34.0); Mean Corpuscular Hgb Conc 35.2 g/dL (32.0-36.0); Mean Corpuscular Volume 85.9 fL (80.0-100.0); Mean Platelet Volume 11.8 fL (9.4-12.4); Monocytes # (auto) 0.65 K/uL (0.11-0.59); Monocytes % (auto) 10.1 %; Neutrophils # (auto) 4.99 K/uL (1.40-6.50); Neutrophils % (auto) 77.2 %; Platelet Count 155 K/uL (130-400); RDW Coefficient of Variation 13.1 % (11.5-14.5); RDW Standard Deviation 41.1 fL (36.4-46.3); Red Blood Count 2.98 M/uL (4.20-5.40); White Blood Count 6.46 K/ul (4.8-10.8)
[2022-08-13 07:16] LABS: BUN Creatinine Ratio 27.3 (10-20); Calcium 8.5 mg/dl (8.6-10.3); Creatinine Clr Calc Pharmacy 37.7 ml/min; Est GFR (African American) 53.8 ml/min; Est GFR (Non-African American) 46.4 ml/min; Potassium 4.2 mmol/L (3.5-5.1)
--- NOTE | 2022-08-13 08:29 | Orthopedic Progress Note ---
Date of Service August 13, 2022 Assessment & Plan (1) Rotator cuff tear arthropathy of left shoulder: Plan: POD #1 s/p Left Reversed Total Shoulder Arthroplasty pt/ot asa 81mg po bid Acute blood loss anemia-likely secondary to surgical loss. Patient currently asymptomatic. No need for transfusion at this time. medical team managing her HTN, thyroid and other medical problems. DC planning-plan for discharge to [facility] today. Admission and Anticipated Discharge Date Admission Date: August 11, 2022 Subjective Postop day 2 Patient sitting in her chair at the bedside. States she has some left shoulder soreness this morning but otherwise feels well. Denies shortness of breath, chest pain, lightheadedness. She was having some numbness in the left fingers this morning which comes and goes. We discussed that it is likely secondary from positional with her sling and discussed she could loosen the sling to move her elbow and wrist at certain periods of time to relieve this. No other complaints at this time. Patient is hoping to go to [facility] today. Physical Exam Physical Exam: Silverlon dressing with mild bloody drainage in the dressing window. Drainage is not leaking through the dressing at this time. Otherwise the shoulder looks benign. Sling is in place. She is moving her fingers quite well with good range of motion of the wrist as well. Cap refills less than 2 seconds. Results & Data Vital Signs (Past 12 Hours) Vital Signs Temp Pulse Resp BP Pulse Ox O2 Del Method 08/13/22 07:21 36.7 C 76 16 121/67 94 Room Air 08/12/22 20:51 36.7 C 73 16 107/64 94 Room Air Laboratory Results 08/13/22 08/13/22 Range/Units 06:25 06:25 WBC 6.46 (4.8-10.8) K/ul RBC 2.98 L (4.20-5.40) M/uL Hgb 9.0 L (12.0-16.0) g/dl Hct 25.6 L (37.0-47.0) % MCV 85.9 (80.0-100.0) fL MCH 30.2 (25.0-34.0) pg MCHC 35.2 (32.0-36.0) g/dL RDW Std Deviation 41.1 (36.4-46.3) fL RDW Coeff of [place] 13.1 (11.5-14.5) % Plt Count 155 (130-400) K/uL MPV 11.8 (9.4-12.4) fL Immature Gran % (Auto) 0.6 % Neut % (Auto) 77.2 % Lymph % (Auto) 12.1 % [place] % (Auto) 10.1 % Eos % (Auto) 0.0 % Baso % (Auto) 0.0 % Neut # (Auto) 4.99 (1.40-6.50) K/uL Lymph # (Auto) 0.78 L (1.2-3.4) K/uL [place] # (Auto) 0.65 H (0.11-0.59) K/uL Eos # (Auto) 0.00 (0-0.50) K/uL Baso # (Auto) 0.00 (0-0.2) K/uL Immature Gran # (Auto) 0.04 (0.01-0.20) K/uL Sodium 136 (136-145) mmol/L Potassium 4.2 (3.5-5.1) mmol/L Chloride 104 (98-107) mmol/L Carbon Dioxide 27 (21-32) mmol/L Anion Gap 5 (3-11) BUN 30 H (6-23) mg/dl Creatinine 1.10 (0.6-1.2) mg/dl Est Cr Clr Drug Dosing 37.7 ml/min Est GFR ( Amer) 53.8 ml/min Est GFR (Non-Af Amer) 46.4 ml/min BUN/Creatinine Ratio 27.3 H (10-20) Glucose 137 H (70-99(Fasting)) mg/dl Calcium 8.5 L (8.6-10.3) mg/dl
[2022-08-13] MEDS: LEVOTHYROXINE SODIUM 50 MCG TABLET PO SCH (08:30)
[2022-08-13] MEDS: oxyCODONE HCL 10 MG TABCR (OxyCONTIN) PO SCH (08:30)
[2022-08-13] MEDS: busPIRone 5 MG TAB PO SCH (08:30)
[2022-08-13] MEDS: PREGABALIN 150 MG CAP PO SCH (08:30)
[2022-08-13] MEDS: CALCIUM 600MG + VIT D 400 IU TAB PO SCH (08:31)
[2022-08-13] MEDS: CeleBREX 200 MG CAP PO SCH (08:31)
[2022-08-13] MEDS: CHOLECALCIFEROL 1,000 UNITS 25 MCG TAB PO SCH (08:31)
[2022-08-13] MEDS: DOCUSATE SODIUM 100 MG CAP PO SCH (08:31)
[2022-08-13] MEDS: ASPIRIN 81 MG ECTAB PO SCH (08:31)
[2022-08-13] MEDS: MULTIVITAMIN TAB PO SCH (08:31)
[2022-08-13] MEDS: CETIRIZINE HCL 10 MG TABLET PO SCH (08:31)
[2022-08-13] MEDS: carvediloL 3.125 MG TAB PO SCH (08:31)
[2022-08-13] MEDS: PANTOprazole 40 MG TAB PO SCH (08:31)
--- NOTE | 2022-08-13 12:05 | Hospitalist Progress Note ---
Date of Service August 13, 2022 Assessment & Plan (1) Rotator cuff tear arthropathy of left shoulder: Plan: Left total shoulder arthroplasty s/p Left Reversed Total Shoulder Arthroplasty 08/12/2019 -pain controlled, with acute blood loss anemia and orthostasis which is now resolved Continue current pain control, patient does not have her Xtampza ER available this has been converted to Oxy Contin 10 mg twice daily Continue aspirin twice daily 81 mg for DVT prophylaxis -LUE in sling -plan for SNF today Medically stable for discharge (2) HTN (hypertension): Plan: BPs with orthostasis with sitting, BP to 60s systolic, 90s lying on 08/12 Now resolved with IVFs x 1 L bolus on 08/12 and holding BP meds, orthostatics on 08/13 negative Continue carvedilol twice daily and can restart lisinopril for 08/14 but reduced to 20mg once daily from bid -continue to HOLD amlodipine (3) Orthostasis: Plan: as above resolved (4) Acute blood loss anemia: Plan: hgb drop to 9 from 15 preop some bruising around surgical site and some is hemodilutional follow CBC as outpt (5) CAD (coronary artery disease): Plan: Coronary artery disease with history of PCI and single stent placement 2003 Continue carvedilol as noted Hold meloxicam Continue aspirin, temporarily increased to twice daily from daily for DVT prophylaxis. Preop EKG: Normal sinus rhythm, nonspecific ST changes, no ST yuli vation/depressions, QTc 432 Follows with [facility]. She has limited mobility due to her fibromyalgia and joint pain; but had not had anginal symptoms leading up to evaluation No chest pain, chest pressure, dyspnea, or anginal symptoms postoperatively (6) Hyponatremia: Plan: Na+ here is normal Due to excessive water intake, no problems since dietary change. No acute management for this required. (7) Hypothyroidism: Plan: Continue Synthroid 50 mcg daily (8) Fibromyalgia: Plan: Continue home Percocet dosing, pregabalin 150 3 times daily. Xtampsa converted to OxyContin, may resume Xtampsa on d/c Plan DVT proph-SARAHI hose, SCDs, ASA bid Dispo-stable for dc, discussed with Ortho PA Admission and Anticipated Discharge Date Admission Date: August 11, 2022 Subjective Pt feeling very well, no lightheadedness, no CP or SOB. L shoulder is achy but has improved with pain meds. Orthostatics negative today Discussed care with Jina from Ortho Physical Exam Constitutional: WD/WN, vitals as above Neck: trachea midline, no thyromegaly Respiratory: normal respiratory effort, lungs clear to auscultation Cardiovascular: RRR, no murmur, no edema Chest (Breasts): Chest: normal inspection of chest Gastrointestinal (Abdomen): normal bowel sounds, soft, nontender, no hepatosplenomegaly Musculoskeletal: Extremities: + extremities abnormal to inspection (LUE in sling), no cyanosis and no clubbing Skin: no rashes, warm and dry ecchymosis left anterior chest all and left shoulder, no tense hematoma at shoulder Neurologic: moves all extremities and awake; no focal motor deficits Psychiatric: A+Ox3, euthymic affect Lymphatic: no lymphedema Results & Data Results & Data Vital Signs (Past 12 Hours) Vital Signs Temp Pulse Resp BP Pulse Ox O2 Del Method 08/13/22 11:58 36.7 C 76 16 121/67 94 08/13/22 07:21 36.7 C 76 16 121/67 94 Room Air Laboratory Results CBC, BMP reviewed PG Care Time/CCT Total # of Minutes Spent Total Time Spent with Patient: Total time spent is greater than 50% in coordination of care (as documented) at patient's floor/unit and/or counseling patient: Coding Level of Care Code 35634 SUB INP/OBS CARE 2/35MIN Diagnoses Rotator cuff tear arthropathy of left shoulder M75.102; M12.812 HTN (hypertension) I10 Orthostasis I95.1 Acute blood loss anemia D62 CAD (coronary artery disease) I25.10 Hyponatremia E87.1 Hypothyroidism E03.9 Fibromyalgia M79.7
--- NOTE | 2022-08-15 14:18 | Discharge Summary ---
Date of Service August 15, 2022 Admission HPI Per Admitting Provider Rica is an 82-year-old woman with left shoulder pain and left shoulder rotator cuff tear arthropathy. After the failure of conservative treatment I recommended proceeding with a left reverse total shoulder replacement. Principal Diagnosis left shoulder rotator cuff arthropathy Discharge Exam Silverlon dressing with mild bloody drainage in the dressing window. Drainage is not leaking through the dressing at this time. Otherwise the shoulder looks benign. Sling is in place. She is moving her fingers quite well with good range of motion of the wrist as well. Cap refills less than 2 seconds. Eyes PERRL, conjunctivae normal, anicteric sclerae ENMT external ear and nose normal, oropharynx normal Discharge Data Allergies Allergy/AdvReac Type Severity Reaction Status Date / Time acetaminophen AdvReac Intermediate Increased Verified 08/11/22 11:28 Liver Enzymes per [facility] morphine AdvReac Gastrointestinal Verified 08/11/22 08:59 Upset [id number] Reductase AdvReac Muscle Pain Verified 08/11/22 08:59 Inhibitor thiopental [From Pentothal] AdvReac "I didn't Verified 08/11/22 08:59 wake up for 3 days" Consultations 08/11/22 13:43 Consult Hospitalist Routine Procedures Performed Operation Date: 08/11/22 11:20 Actual Procedures p Left Reversed Total Shoulder Arthroplasty(Left) - Grant Lima MD Ordered Studies 08/11/22 05:00 US - OR guided needle placemen Routine Hospital Course (1) Rotator cuff tear arthropathy of left shoulder: POD #1 s/p Left Reversed Total Shoulder Arthroplasty pt/ot asa 81mg po bid Acute blood loss anemia-likely secondary to surgical loss. Patient currently asymptomatic. No need for transfusion at this time. medical team managing her HTN, thyroid and other medical problems. DC planning-plan for discharge to [facility] today. Total Time Total Time Spent Total Time Spent (In Minutes): 30 minutes Discharge Plan Discharge Items Patient Disposition: Transfer Custodial Fac Reason For Visit: Left Shoulder Osteoarthritis Discharge Diagnosis: Left Reversed Total Shoulder Arthroplasty Acute blood loss anemia Orthostatic hypotension Activity: Per Instructions section Lifting: Wait until after follow-up appointment Weightbearing: Left non-weightbearing Non-emergency contact: Primary Care Provider and Surgeon Call non-emergency contact if: you have any medication questions, your temperature is above 101, your wound has increased redness, your wound has increased drainage and your wound pain has increased Follow-up/Referrals: Grant Lima MD [Surgeon] - (Follow-up with Dr. Lima or his PA in 2 weeks from the day of surgery for your first postoperative visit.) PCP,NO [Physician] - Diet: Regular Addtl Attending Provider Instructions: Take aspirin 81mg twice daily x 30 days for DVT prophylaxis. Take Celebrex 200mg twice daily x 30 days. Do not take other NSAIDs while taking Celebrex. Post-op medications to be sent to the appropriate pharmacy at the time of discharge by Dr. Lima's office Post-op dressing to remain in place for 7 days. Dressing can be removed 7 days following surgery by home nursing. Patient may shower 7 days following surgery. Do not submerge the shoulder. Wear the shoulder sling at all times except for bathing, dressing, and doing home exercises. Do home exercises. Pending Studies at Discharge: No Stand-Alone Forms: [facility] Skilled Items Patient informed of condition?: Yes DNR: No Discharge Level of Care: Skilled Communicable Disease: No Discharge Prognosis: Stable Lines: None Urinary Catheter: No Medications and DC Order Prescriptions: New aspirin 81 mg Tablet,Delayed Release (Dr/Ec) 81 mg PO BID 30 Days Qty: 60 0RF celecoxib [Celebrex] 200 mg Capsule 200 mg PO BID 30 Days Qty: 60 0RF Continued cetirizine [Zyrtec] 10 mg Tablet 10 mg PO QAM carvedilol 3.125 mg Tablet 3.125 mg PO BID Rx Instructions: must administer with a meal/food levothyroxine 50 mcg Tablet 50 mcg PO QAM buspirone 10 mg Tablet 10 mg PO BID oxycodone-acetaminophen 7.5-325 mg Tablet 1 tab PO BID PRN (Reason: Pain) pregabalin 150 mg Capsule 150 mg PO BID Xtampza ER 9 mg Cap,Sprinkl,Er12hr(Dont Crush) 9 mg PO BID Rx Instructions: must administer with a meal/food Vitamin D3 1 tab PO QAM calcium carbonate-vitamin D3 600 mg-5 mcg (200 unit) Tablet 1 tab PO QAM hyoscyamine sulfate [Levsin] 0.125 mg Tablet 0.125 mg PO BID PRN (Reason: Abdominal Pain) phenolphthalein-docusate sod 65-100 mg Tablet PO DAILY melatonin 10 mg Tablet 10 mg PO HS PRN (Reason: Insomnia) Changed lisinopril 20 mg Tablet 20 mg PO QAM Qty: 30 0RF Discontinued amlodipine 5 mg Tablet 5 mg PO QAM meloxicam 7.5 mg Tablet 7.5 mg PO BID aspirin 81 mg Capsule 81 mg PO QAM diclofenac sodium 50 mg Tablet,Delayed Release (Dr/Ec) 50 mg PO DAILY Discharge Orders: Discharge Order (Routine); Ordered 08/13/22 Ordered By: Tong Last Admission Data Admit Date/Time: 08/11/22 13:43 Attending Provider: Grant Lima Admit Provider: Grant Lima Primary Care Provider: Tracie Zaragoza Other Providers: Stan Alanis ; Aylin Cardona Other Interventions: Discharge Summary Assessment (RN) Last Done: 08/13/22 11:58
== END 2022-08-13 13:23 ==
LOC: ASU 08:37 → 3E 08:37